=== PATIENT | female | born 1965 | race Hispanic/Latino ===

== ENCOUNTER 2020-06-18 16:02 | Emergency (ER) | payer SELFPAY ==
[2020-06-18 16:46] VITALS: BP 135/76
--- NOTE | 2020-06-18 18:39 | Emergency Department Report ---
ED General Adult HPI - General Chief complaint: Eye Problems Stated complaint: RT EYE Time Seen by Provider: 06/18/20 17:57 Source: patient Mode of arrival: Ambulatory Limitations: No Limitations - History of Present Illness Initial comments: 54 yo F pt presents with complaints of recurrent right eye stye x 2-3 months, worsening x 2 days. She reports there is purulent drainage from the eye and stye and swelling to the face. She rates her pain as a 8/10 in severity. Pt denies any vision changes, pain with eye movements, or headaches. - Related Data Previous Rx's Medication Instructions Recorded Last Taken Type Clindamycin [Clindamycin CAP] 300 mg PO Q6H 10 Days #40 capsule 06/18/20 Unknown Rx Erythromycin [Erythromycin Ophth 1 cm OU Q4H 10 Days #1 tube 06/18/20 Unknown Rx Oint] Ibuprofen [Motrin 800 MG tab] 800 mg PO Q8HR PRN #20 tablet 06/18/20 Unknown Rx Allergies Allergy/AdvReac Type Severity Reaction Status Date / Time No Known Allergies Allergy Unverified 06/18/20 16:43 ED Review of Systems ROS: Stated complaint: RT EYE Other details as noted in HPI Constitutional: denies: chills, fever Eyes: eye pain, eye discharge. denies: vision change ENT: denies: ear pain Respiratory: denies: cough Skin: change in color Neurological: denies: headache, numbness, paresthesias ED Past Medical Hx - Past Medical History Previous Medical History?: No - Surgical History Hx Cholecystectomy: Yes Additional Surgical History: TUBAL LIG. - Medications Home Medications: Home Medications Medication Instructions Recorded Confirmed Last Taken Type Clindamycin [Clindamycin CAP] 300 mg PO Q6H 10 Days #40 capsule 06/18/20 Unknown Rx Erythromycin [Erythromycin Ophth 1 cm OU Q4H 10 Days #1 tube 06/18/20 Unknown Rx Oint] Ibuprofen [Motrin 800 MG tab] 800 mg PO Q8HR PRN #20 tablet 06/18/20 Unknown Rx ED Physical Exam - General Limitations: No Limitations General appearance: alert, in no apparent distress - Head Head exam: Present: atraumatic, normocephalic - Expanded Eye Exam Expanded Eyelids: Stye: Right (with minimal active purulent drainage), Erythema: Right, Swelling: Right (mild with mild erythema) Sclera/Conjunctival: Normal Inspection: Left, Injection: Right - Neck Neck exam: Present: normal inspection - Respiratory Respiratory exam: Absent: respiratory distress - Cardiovascular Cardiovascular Exam: Present: regular rate - Neurological Exam Neurological exam: Present: alert, oriented X3, normal gait - Psychiatric Psychiatric exam: Present: normal affect, normal mood - Skin Skin exam: Present: warm, dry, intact, normal color. Absent: rash ED Course Vital Signs 06/18/20 16:45 Temperature 98.2 F Pulse Rate 72 Respiratory 18 Rate Blood Pressure 135/76 O2 Sat by Pulse 98 Oximetry ED Medical Decision Making - Medical Decision Making 54 yo F pt presents with complaints of recurrent right eye stye x 2-3 months, worsening x 2 days. She reports there is purulent drainage from the eye and stye and swelling to the face. She rates her pain as a 8/10 in severity. Pt denies any vision changes, pain with eye movements, or headaches. Hordeolum noted on exam with some erythema and swelling to the lower eyelid. No pain with eye movements per pt. She is afebrile and non tachycardic.Will treat with clindamycin and erythromycin. Discussed signs and symptoms of worsening infection and preseptal cellulitis-pt to return to ED if she experiences these and states understanding. Critical care attestation.: If time is entered above; I have spent that time in minutes in the direct care of this critically ill patient, excluding procedure time. ED Disposition Clinical Impression: Hordeolum externum (stye) Qualifiers: Laterality: right Eyelid: lower Qualified Code(s): H00.012 - Hordeolum externum right lower eyelid Disposition: - TO HOME OR SELFCARE Is pt being admited?: No Condition: Stable Instructions: Stye Prescriptions: Clindamycin [Clindamycin CAP] 300 mg PO Q6H 10 Days #40 capsule Erythromycin [Erythromycin Ophth Oint] 1 cm OU Q4H 10 Days #1 tube Ibuprofen [Motrin 800 MG tab] 800 mg PO Q8HR PRN #20 tablet PRN Reason: pain Referrals: [facility] [Provider Group] - 3-5 Days
== END 2020-06-18 19:31 | disposition home or self-care (01) ==
LOC: ED 16:02
DX: H00.012 Hordeolum externum right lower eyelid (principal); Z98.51 Tubal ligation status; Z79.899 Other long term (current) drug therapy
CPT/HCPCS: 99281

== ENCOUNTER 2020-07-09 17:50 | Emergency (ER) | payer SELFPAY ==
[2020-07-09 18:22] VITALS: BP 137/83
--- NOTE | 2020-07-09 19:19 | Emergency Department Report ---
ED General Adult HPI - General Chief complaint: Extremity Injury, Upper Stated complaint: HAND PAIN Time Seen by Provider: 07/09/20 18:43 Source: patient Mode of arrival: Ambulatory Limitations: No Limitations - History of Present Illness Initial comments: 54-year-old female presents with complaints of bilateral hand pain x1 year and itchy rash to arms and face since being here in the ED today. She denies any injuries to her hands, history of rheumatoid arthritis/lupus, fever/chills/sweats, history of cancer/diabetes. 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 She also states there is intermittent burning in her hands that worsens at night. Patient states she believes the rash is due to pollen and states a history of contact dermatitis from pollen. Benadryl helps some per patient. -: Gradual Severity scale (0 -10): 3 Consistency: intermittent Improves with: none - Related Data Previous Rx's Medication Instructions Recorded Last Taken Type Clindamycin [Clindamycin CAP] 300 mg PO Q6H 10 Days #40 capsule 06/18/20 Unknown Rx Erythromycin [Erythromycin Ophth 1 cm OU Q4H 10 Days #1 tube 06/18/20 Unknown Rx Oint] Ibuprofen [Motrin 800 MG tab] 800 mg PO Q8HR PRN #20 tablet 06/18/20 Unknown Rx Diclofenac Sodium 75 mg PO BID PRN #20 tablet.dr 07/09/20 Unknown Rx Prednisone [predniSONE 10 mg 10 mg PO .TAPER #1 tab.ds.pk 07/09/20 Unknown Rx (6-Day Pack, 21 Tabs)] Allergies Allergy/AdvReac Type Severity Reaction Status Date / Time No Known Allergies Allergy Unverified 06/18/20 16:43 ED Review of Systems ROS: Stated complaint: HAND PAIN Other details as noted in HPI Constitutional: denies: diaphoresis, fever, malaise, weakness Musculoskeletal: arthralgia. denies: joint swelling Neurological: paresthesias. denies: weakness, numbness Hematological/Lymphatic: denies: easy bleeding, easy bruising, swollen glands ED Past Medical Hx - Past Medical History Previous Medical History?: No - Surgical History Past Surgical History?: Yes Hx Cholecystectomy: Yes Additional Surgical History: TUBAL LIG. - Social History Smoking Status: Never Smoker Substance Use Type: None - Medications Home Medications: Home Medications Medication Instructions Recorded Confirmed Last Taken Type Clindamycin [Clindamycin CAP] 300 mg PO Q6H 10 Days #40 capsule 06/18/20 Unknown Rx Erythromycin [Erythromycin Ophth 1 cm OU Q4H 10 Days #1 tube 06/18/20 Unknown Rx Oint] Ibuprofen [Motrin 800 MG tab] 800 mg PO Q8HR PRN #20 tablet 06/18/20 Unknown Rx Diclofenac Sodium 75 mg PO BID PRN #20 tablet. 07/09/20 Unknown Rx Prednisone [predniSONE 10 mg 10 mg PO .TAPER #1 tab.ds.pk 07/09/20 Unknown Rx (6-Day Pack, 21 Tabs)] ED Physical Exam - General Limitations: No Limitations General appearance: alert, in no apparent distress, obese - Head Head exam: Present: atraumatic, normocephalic - Eye Eye exam: Present: normal appearance - Respiratory Respiratory exam: Absent: respiratory distress - Cardiovascular Cardiovascular Exam: Present: regular rate, normal rhythm - Expanded Upper Extremity Exam Left Forearm Wrist exam: Present: normal inspection, full ROM. Absent: tenderness, swelling Hand Wrist exam: Present: normal inspection, full ROM. Absent: tenderness, swelling Neuro motor exam: Present: wrist extension intact Vascular: Present: normal capillary refill. Absent: vascular compromise, pulse deficit radial art, pulse deficit ulnar art Right Forearm Wrist exam: Present: normal inspection, full ROM. Absent: tenderness, swelling Hand Wrist exam: Present: normal inspection, full ROM. Absent: tenderness, swelling, ecchymosis Neurosensory exam: Present: ulnar nerve intact, median nerve intact Vascular: Present: normal capillary refill. Absent: vascular compromise - Back Exam Back exam: Present: full ROM - Neurological Exam Neurological exam: Present: alert, oriented X3, normal gait - Psychiatric Psychiatric exam: Present: normal affect, normal mood - Skin Skin exam: Present: warm, dry, intact, normal color, rash (Urticarial rash noted to face and arms bilaterally). Absent: diaphoretic, erythema, petechiae, pallor, ecchymosis ED Course Vital Signs 07/09/20 18:21 Temperature 98 F Pulse Rate 84 Respiratory 16 Rate Blood Pressure 137/83 [Right] O2 Sat by Pulse 97 Oximetry ED Medical Decision Making - Medical Decision Making 54-year-old female presents with complaints of bilateral hand pain x1 year and itchy rash to arms and face since being here in the ED today. She denies any injuries to her hands, history of rheumatoid arthritis/lupus, fever/chills/sweats, history of cancer/diabetes. 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 She also states there is intermittent burning in her hands that worsens at night. Patient states she believes the rash is due to pollen and states a history of contact dermatitis from pollen. Benadryl helps some per patient. Urticarial rash noted on exam to face and arms bilaterally. Will treat with prednisone and triamcinolone. Pain in hands likely arthritis and burning is possibly due to carpal tunnel syndrome. POC glucose 119. Recommend night splinting with wrist splint and follow-up with primary care doctor for further evaluation. Diclofenac prescription given. Strict return precautions discussed in detail with patient who verbalizes understanding. Critical care attestation.: If time is entered above; I have spent that time in minutes in the direct care of this critically ill patient, excluding procedure time. ED Disposition Clinical Impression: Bilateral hand pain, Carpal tunnel syndrome Contact dermatitis Qualifiers: Contact dermatitis type: allergic Contact dermatitis trigger: other trigger Qualified Code(s): L23.89 - Allergic contact dermatitis due to other agents; L23.8 - Allergic contact dermatitis due to other agents Disposition: DC-01 TO HOME OR SELFCARE Is pt being admited?: No Condition: Stable Instructions: Contact Dermatitis, [id number], Hand Pain, Carpal Tunnel Syndrome, [id number], Arthritis Prescriptions: Diclofenac Sodium 75 mg PO BID PRN #20 tablet.dr PRETTY Reason: pain Prednisone [predniSONE 10 mg (6-Day Pack, 21 Tabs)] 10 mg PO .TAPER #1 tab.ds.pk Referrals: [facility] [Provider Group] - 3-5 Days
== END 2020-07-09 19:30 | disposition home or self-care (01) ==
LOC: ED 17:50
DX: G56.03 Carpal tunnel syndrome, bilateral upper limbs (principal); L23.89 Allergic contact dermatitis due to other agents; Z79.899 Other long term (current) drug therapy; Z90.49 Acquired absence of other specified parts of digestive tract; Z98.51 Tubal ligation status
CPT/HCPCS: 82962